=== PATIENT | female | born 1995 | race Caucasian/White ===

== ENCOUNTER 2017-05-08 17:47 | Emergency (ER) | payer SELFPAY ==
[~2017-05-08 17:47] MED LIST: ALBU0.63 NEB; ALBU6.7H IH; AZIT250T PO
--- NOTE | 2017-05-08 18:15 | PHYS DOC ---
Past History Past Medical History: Anxiety, Asthma Past Surgical History: No Surgical History Alcohol Use: None Drug Use: None Adult General Chief Complaint Chief Complaint: FOOT INJURY PAIN HPI HPI Patient is a 21 year old female who presents with left foot & ankle injury. The patient states 5 days ago she tripped & fell twice, unsure exactly how her foot/ankle twisted, but she sat down on top of her left foot. She complains of pain & swelling to the ankle, pain with weightbearing but is able to ambulate. Pain worst when she points her toe, feels stretching in anterior ankle. She denies other injuries, no head trauma or loss of consciousness. This was not caused by syncope. She denies previous ankle/foot injury or surgery. Review of Systems Review of Systems Constitutional: Denies fever or chills HENT: Denies nasal congestion or sore throat Respiratory: Denies cough or shortness of breath Cardiovascular: Denies chest pain Musculoskeletal: Reports foot & ankle pain. Integument: Denies rash Neurologic: Denies headache All other systems were reviewed and found to be within normal limits, except as documented in this note. Allergies Allergies Allergies Coded Allergies Type Severity Reaction Last Updated Verified Penicillins Allergy Intermediate [facility] 06/07/14 No loratadine Allergy Intermediate [facility] 06/07/14 No oseltamivir Allergy Intermediate 06/07/14 No sulfamethoxazole Allergy Intermediate [facility] 06/07/14 No trimethoprim Allergy Intermediate [facility] 06/07/14 No Physical Exam Physical Exam Constitutional: obese, no acute distress, non-toxic appearance. HENT: Normocephalic, atraumatic, bilateral external ears normal, oropharynx moist, nose normal. Eyes: conjunctiva normal, no discharge. Cardiovascular: no edema. Lungs & Thorax: no respiratory distress. Abdomen: nondistended. Skin: Warm, dry, no erythema, no rash. Extremities: left foot & ankle with ecchymosis over lateral malleolus & distal 2 -4 metatarsals, minimal swelling noted. no medial/lateral malleolus tenderness , tenderness over the area of ecchymosis over distal 2-4 metatarsals without deformity, no proximal tib/fib tenderness, intact dorsiflexion & plantarflexion , plantarflexion elicits mild tenderness in lateral ankle. dp/pt 2+, sensation intact to foot. Neurologic: Alert and oriented X 3 EKG EKG [] Radiology/Procedures Radiology/Procedures XR L ankle, 3 views: interpreted by me: no fracture or dislocation. XR L foot, 3 views: interpreted by me: no fracture or dislocation.[] Course & Med Decision Making Course & Med Decision Making Pertinent Labs and Imaging studies reviewed. (See chart for details) Patient presents with foot & ankle injury. X-ray shows no acute bony injury. Recommend supportive care with rest, ice, elevation, [place] wrap bandage. Follow up as needed if not improving in 1 week, either with primary care or ortho. Come back for neurovascular compromise or otherwise worsening condition. Discharged home in stable condition. [] Dragon Disclaimer Dragon Disclaimer This electronic medical record was generated, in whole or in part, using a voice recognition dictation system. Departure Departure: Impression: Primary Impression: Ankle sprain Disposition: HOME, SELF-CARE Referrals: ALTAF ANDREA APRN (PCP) ORTHO Patient Instructions: Ankle Sprain, [id number] Additional Instructions: You were seen in the emergency department today for foot & ankle injury. The x- ray did not show fracture. Please rest, ice, elevate, take ibuprofen, wear [place] wrap for comfort. If not improving in 1 week, follow up with primary care or in the orthopedic clinic. Problem Qualifiers Primary Impression: Ankle sprain Encounter type: initial encounter Involved ligament of ankle: unspecified ligament Laterality: left Qualified Codes: S93.402A - Sprain of unspecified ligament of left ankle, initial encounter ANASTACIO RUIZ MD May 08, 2017 18:15
[2017-05-08 18:40] VITALS: BP 115/64
--- NOTE | 2017-05-09 07:38 | RAD ---
Three-view study of the left foot History: 3 falls over the last week. Bruising along the entire anterior aspect of the foot and ankle. Findings: No acute fracture or dislocation or osteolytic process is evident. IMPRESSION: No acute fracture.
--- NOTE | 2017-05-09 07:40 | RAD ---
Three-view study of the left ankle Clinical indications: 3 falls left week. Bruising along the entire anterior aspect of the foot and ankle. Findings: No acute fracture or dislocation or osteolytic process is evident. Mortise ankle joint is intact. IMPRESSION: No acute fracture.
== END 2017-05-08 18:40 | disposition home or self-care (01) ==
LOC: ER 17:47
DX: S93.402A Sprain of unspecified ligament of left ankle, initial encounter (principal); J45.909 Unspecified asthma, uncomplicated; F41.9 Anxiety disorder, unspecified; Z88.1 Allergy status to other antibiotic agents; Z88.0 Allergy status to penicillin; Z88.8 Allergy status to other drugs, medicaments and biological substances; W01.0XXA Fall on same level from slipping, tripping and stumbling without subsequent striking against object, initial encounter; Y93.89 Activity, other specified; Y99.8 Other external cause status; Y92.89 Other specified places as the place of occurrence of the external cause
CPT/HCPCS: 73610; 73630; 99284

== ENCOUNTER 2017-09-10 20:49 | Emergency (ER) | payer SELFPAY ==
[~2017-09-10] VITALS: Ht 160 cm; Wt 101.5 kg
[2017-09-10] MEDS ORDERED: IV NORMAL SALINE 1,000ML 1,000 ML IV SCH (21:30)
--- NOTE | 2017-09-10 21:43 | EKG ---
[address] [address] Test Date: 2017-09-10 Test Time: 21:36:37 Pat Name: MAU SIERRA Department: Room: Gender: F Manager Salt: RACHEL : 1995 Requested By: KAYLA GÓMEZ Order Number: [id number] Reading MD: Measurements Intervals [place] Rate: 116 P: 24 DC: 150 QRS: 51 QRSD: 64 T: 49 QT: 308 QTc: 434 Interpretive Statements SINUS TACHYCARDIA NO SPECIFIC ECG ABNORMALITIES RI6.01 No previous ECG available for comparison
[2017-09-10] MEDS ORDERED: LORazepam 2 MG/ML VIAL IV ONE ×3 (21:45→23:00)
[2017-09-10] MEDS ORDERED: methylPREDNISolone SOD SUCC PF 125 MG/2 ML VIAL. IV ONE (21:45)
[2017-09-10 22:02] LABS: BASO % 0 % (0-3); EOS % 0 % (0-3); HEMATOCRIT 39.4 % (36.0-47.0); HEMOGLOBIN 13.5 g/dL (12.0-15.5); LYMPH # 2.1 x10^3/uL (1.0-4.8); LYMPH % 32 % (24-48); MEAN CORPUSCULAR HEMOGLOBIN 31 pg (25-35); MEAN CORPUSCULAR HGB CONC 34 g/dL (31-37); MEAN CORPUSCULAR VOLUME 90 fL (79-100); MONO # 0.5 x10^3/uL (0.0-1.1); MONO % 7 % (0-9); NEUT # 3.9 x10^3uL (1.8-7.7); NEUT % 60 % (31-73); PLATELET COUNT 204 x10^3/uL (140-400); RED BLOOD COUNT 4.39 x10^6/uL (3.50-5.40); RED CELL DISTRIBUTION WIDTH 12.5 % (11.5-14.5); WHITE BLOOD COUNT 6.4 x10^3/uL (4.0-11.0)
[2017-09-10 22:12] LABS: CALCIUM 8.6 mg/dL (8.5-10.1); GFR 68.7; POTASSIUM 3.2 mmol/L (3.5-5.1)
[2017-09-10 22:15] LABS: BARBITURATES NEG (NEG); BENZODIAZEPINES NEG (NEG); CANNABINOIDS NEG (NEG); COCAINE NEG (NEG); METHADONE NEG (NEG); OPIATES NEG (NEG); PHENCYCLIDINE NEG (NEG)
[2017-09-10 22:18] LABS: AMPHETAMINE/METHAMPHETAMINE NEG (NEG)
[2017-09-10] MEDS ORDERED: BENZONATATE 100 MG CAPSULE. PO ONE (22:45)
[2017-09-10] MEDS ORDERED: IOHEXOL 300 MG/ML 75 ML VIAL. IV ONE (23:00)
[2017-09-10] MEDS ORDERED: CONTRAST GIVEN MC PRN (23:15)
--- NOTE | 2017-09-10 23:41 | RAD ---
CTA Chest with contrast: Clinical History: Omni 300, 75ml IV. Shortness of air, tachycardia. Hx asthma. No prior exams for comparison Shortness of breath. Axial helical images of the chest were obtained after the administration of 75 cc of IV Omni 300 and timed appropriately for a pulmonary arterial study. Conventional axial reconstruction was performed in addition to coronal, sagittal and bilateral oblique MIP (maximum intensity projection). This study was ordered to detect possible pulmonary embolism. There are no filling defects to suggest pulmonary embolism. The lungs and pleural margins are clear. There is no mediastinal or hilar lymphadenopathy. The thoracic aorta appears normal. Impression: 1. No evidence of pulmonary embolism. 2. No significant findings. PQRS Compliance Statement: One or more of the following individualized dose reduction techniques were utilized for this examination: 1. Automated exposure control 2. Adjustment of the mA and/or kV according to patient size 3. Use of iterative reconstruction technique Electronically signed by: Ramón Cleveland III, MD (09/10/2017 11:37 PM) [facility]
[2017-09-11 00:27] VITALS: BP 113/78
[2017-09-11] MEDS ORDERED: ALPR0.5T PO (00:38)
[2017-09-11] MEDS ORDERED: PRED20TA PO (00:38)
[2017-09-11] MEDS ORDERED: BENZ100C PO (00:38)
--- NOTE | 2017-09-11 00:38 | PHYS DOC ---
Past History Past Medical History: Anxiety, Asthma Past Surgical History: No Surgical History Alcohol Use: Occasionally Drug Use: Other Adult General Chief Complaint Chief Complaint: MULTIPLE COMPLAINTS HPI HPI 21-year-old female with a history of anxiety and asthma now presents the emergency department complaining of dry cough and wheezing over the last day. Patient states she's been very anxious. Because of her asthma symptoms she used more than 20 puffs of her inhaler today. Patient is not wheezing on arrival but she is clearly very anxious. No productive cough. No fevers chills sweats or shaking chills. Patient does not take any anxiety medications nor she currently on steroids for her asthma. Patient has not been treated for this illness as of yet. Tachycardic on arrival. Denies chest pain and specifically denies pleuritic pain Review of Systems Review of Systems Constitutional: Denies fever or chills [] Eyes: Denies change in visual acuity, redness, or eye pain [] HENT: Denies nasal congestion or sore throat [] Respiratory: Denies cough or shortness of breath [] Cardiovascular: No additional information not addressed in HPI [] GI: Denies abdominal pain, nausea, vomiting, bloody stools or diarrhea [] : Denies dysuria or hematuria [] Musculoskeletal: Denies back pain or joint pain [] Integument: Denies rash or skin lesions [] Neurologic: Denies headache, focal weakness or sensory changes [] Endocrine: Denies polyuria or polydipsia [] All other systems were reviewed and found to be within normal limits, except as documented in this note. Current Medications Current Medications Current Medications Medications (Trade) Dose Ordered Sig/Patricia Start Time Stop Time Status Last Admin Dose Admin Benzonatate (Tessalon Perle) 100 mg 1X ONCE 09/10/17 22:45 09/10/17 22:46 DC 09/10/17 22:49 100 MG Info (Do NOT chart on this entry -- for MONITORING) 1 each PRN DAILY PRN 09/10/17 23:15 09/12/17 23:14 Iohexol (Omnipaque 300 Mg/ml) 75 ml 1X ONCE 09/10/17 23:00 09/10/17 23:01 DC 09/10/17 23:09 75 ML Lorazepam (Ativan) 0.5 mg 1X ONCE 09/10/17 23:00 09/10/17 23:01 DC Methylprednisolone Sodium Succinate (SOLU-Medrol 125MG VIAL) 125 mg 1X ONCE 09/10/17 21:45 09/10/17 21:46 DC 09/10/17 21:47 125 MG Sodium Chloride 1,000 ml @ 1,000 mls/hr Q1H 09/10/17 21:30 09/10/17 21:48 1,000 MLS/HR Allergies Allergies Allergies Coded Allergies Type Severity Reaction Last Updated Verified Penicillins Allergy Intermediate [facility] 06/07/14 No loratadine Allergy Intermediate [facility] 06/07/14 No oseltamivir Allergy Intermediate 06/07/14 No sulfamethoxazole Allergy Intermediate [facility] 06/07/14 No trimethoprim Allergy Intermediate [facility] 06/07/14 No Physical Exam Physical Exam Constitutional: Well developed, well nourished, very anxious patient tachypnea can tachycardic. HENT: Normocephalic, atraumatic, bilateral external ears normal, oropharynx moist, no oral exudates, nose normal. [] Eyes: PERRLA, EOMI, conjunctiva normal, no discharge. [] Neck: Normal range of motion, no tenderness, supple, no stridor. [] Cardiovascular:Heart rate regular rhythm, no murmur [] Lungs & Thorax: Bilateral breath sounds clear to auscultation no wheezes rales rubs or rhonchi[] Abdomen: Bowel sounds normal, soft, no tenderness, no masses, no pulsatile masses. [] Skin: Warm, dry, no erythema, no rash. [] Back: No tenderness, no CVA tenderness. [] Extremities: No tenderness, no cyanosis, no clubbing, ROM intact, no edema. [] Neurologic: Alert and oriented X 3, normal motor function, normal sensory function, no focal deficits noted. [] Psychologic: Affect is very anxious, judgement normal, Current Patient Data Vital Signs Vital Signs Date Time Temp Pulse Resp B/P (MAP) Pulse Ox O2 Delivery O2 Flow Rate FiO2 09/10/17 20:49 98.4 122 24 97 Room Air Lab Results Laboratory Tests Test 09/10/17 21:35 09/10/17 21:45 Urine Opiates Screen Neg (NEG) Urine Methadone Screen Neg (NEG) Urine Barbiturates Neg (NEG) Urine Phencyclidine Screen Neg (NEG) Urine Amphetamine/Methamphetamine Neg (NEG) Urine Benzodiazepines Screen Neg (NEG) Urine Cocaine Screen Neg (NEG) Urine Cannabinoids Screen Neg (NEG) Urine Ethyl Alcohol Neg (NEG) White Blood Count 6.4 x10^3/uL (4.0-11.0) Red Blood Count 4.39 x10^6/uL (3.50-5.40) Hemoglobin 13.5 g/dL (12.0-15.5) Hematocrit 39.4 % (36.0-47.0) Mean Corpuscular Volume 90 fL (79-100) Mean Corpuscular Hemoglobin 31 pg (25-35) Mean Corpuscular Hemoglobin Concent 34 g/dL (31-37) Red Cell Distribution Width 12.5 % (11.5-14.5) Platelet Count 204 x10^3/uL (140-400) Neutrophils (%) (Auto) 60 % (31-73) Lymphocytes (%) (Auto) 32 % (24-48) Monocytes (%) (Auto) 7 % (0-9) Eosinophils (%) (Auto) 0 % (0-3) Basophils (%) (Auto) 0 % (0-3) Neutrophils # (Auto) 3.9 x10^3uL (1.8-7.7) Lymphocytes # (Auto) 2.1 x10^3/uL (1.0-4.8) Monocytes # (Auto) 0.5 x10^3/uL (0.0-1.1) Eosinophils # (Auto) 0.0 x10^3/uL (0.0-0.7) Basophils # (Auto) 0.0 x10^3/uL (0.0-0.2) Sodium Level 143 mmol/L (136-145) Potassium Level 3.2 mmol/L (3.5-5.1) L Chloride Level 106 mmol/L (98-107) Carbon Dioxide Level 25 mmol/L (21-32) Anion Gap 12 (6-14) Blood Urea Nitrogen 18 mg/dL (7-20) Creatinine 1.0 mg/dL (0.6-1.0) Estimated GFR (Cockcroft-Gault) 68.7 Glucose Level 111 mg/dL (70-99) H Calcium Level 8.6 mg/dL (8.5-10.1) Troponin I Quantitative < 0.017 ng/mL (0-0.055) EKG EKG [] Radiology/Procedures Radiology/Procedures Chest x-ray normal study no acute disease interpreted by me[] Course & Med Decision Making Course & Med Decision Making Pertinent Labs and Imaging studies reviewed. (See chart for details) Signs and symptoms consistent with severe anxiety. Patient is significantly tachycardic on arrival which appears to be secondary to her excessive use of bronchodilator therapy today. She is not wheezing on arrival though she feels she is still having symptoms of asthma. It appears that clinically the patient' s anxiety is a very significant contributory factor to her perception of shortness of breath. X-rays unremarkable. Given her tachycardia on arrival to rule out the possibility of pulmonary embolism and given the patient's tachycardia and perception of dyspnea she does not appear to be at the lowest risk category so CTA of the chest was done. Result was unremarkable. Patient is dramatically improved after 1 mg of Ativan total. Heart rate 107 after hydration patient is calm and comfortable appearing. Cough resolved after Tessalon administration. No further workup or treatment is indicated at this time. Patient will be prescribed prednisone as well as Tessalon for her cough and asthma symptoms and Xanax for use as needed for her anxiety. She agrees that outpatient follow-up with primary care physician and strict return precautions given Dragon Disclaimer Dragon Disclaimer This electronic medical record was generated, in whole or in part, using a voice recognition dictation system. Departure Departure: Impression: Primary Impression: Upper respiratory infection Additional Impressions: Asthma exacerbation Anxiety Disposition: 01 HOME, SELF-CARE Condition: IMPROVED Referrals: ALTAF ANDREA APRN (PCP) Patient Instructions: Anxiety and Panic Attacks, Asthma Attacks, Prevention, Upper Respiratory Infection, Adult Additional Instructions: It appears that you're experiencing an upper respiratory infection. This is typically caused by a viral illness which causes irritation of your airways a persistent dry cough. Take Tessalon as needed to help control cough. Finish prednisone as prescribed once a day this is a steroid with a strong anti- inflammatory and will help with minimizing the inflammation causing your cough as well as with any asthma symptoms. It is very clear that your anxiety was significantly contribute into your symptoms today. You have improved significantly with a benzodiazepine medication in the emergency department and you've been given a prescription for several Xanax another benzodiazepine. Follow-up with your doctor tomorrow for reevaluation and to discuss whether he might benefit from a prescription for Xanax for use as needed for anxiety. Return immediately for new severe worsening symptoms Scripts Alprazolam (XANAX) 0.5 Mg Tablet 1 TAB PO twice a day, #4 TAB Prov: KAYLA GÓMEZ MD 09/11/17 Prednisone (PREDNISONE) 20 Mg Tablet 60 MG PO DAILY for 6 Days, #18 TAB Prov: KAYLA GÓMEZ MD 09/11/17 Benzonatate (TESSALON PERLE) 100 Mg Capsule 1 CAP PO TID for COUGH, #30 CAP Prov: KAYLA GÓMEZ MD 09/11/17 Problem Qualifiers KAYLA GÓMEZ MD September 11, 2017 00:38
--- NOTE | 2017-09-11 08:02 | RAD ---
Single view of the Chest 09/10/2017 11:18 PM Indication: Difficulty breathing, wheezing, shortness of air. Hx of asthma Comparison: None Findings: There is no focal consolidation or infiltrate identified. There is no effusion or pneumothorax. The cardiomediastinal silhouette and pulmonary vasculature are within normal limits. No osseous abnormality is identified. Impression: No evidence of acute cardiopulmonary process.
== END 2017-09-11 00:45 | disposition home or self-care (01) ==
LOC: ER 20:49
DX: J06.9 Acute upper respiratory infection, unspecified (principal); J45.901 Unspecified asthma with (acute) exacerbation; F41.9 Anxiety disorder, unspecified; Z88.0 Allergy status to penicillin; Z88.1 Allergy status to other antibiotic agents; Z88.8 Allergy status to other drugs, medicaments and biological substances
CPT/HCPCS: 36415; 71045; 71275; 80048; 80307; 84484; 85025; 93005; 96374; 96375; 96376; 99285; J2060; J2930; Q9967; G0479; J7030

== ENCOUNTER 2017-10-30 23:28 | Emergency (ER) | payer SELFPAY ==
[~2017-10-30] VITALS: Ht 160 cm; Wt 101.5 kg
[~2017-10-30 23:28] MED LIST changes: +ALPR0.5T PO; +BENZ100C PO; +PRED20TA PO
--- NOTE | 2017-10-30 23:38 | ED.ADGEN ---
Past History Past Medical History: Anxiety, Asthma, Depression Past Surgical History: No Surgical History Alcohol Use: Occasionally Drug Use: Other Adult General Chief Complaint Chief Complaint ".. I had been drinking heavy earlier.. I was kezia depressed over seeing my ex. .. out with someone else.. and maybe said some stupid stuff on the internet.. and I had cut my wrist several times.;. but not to kill myself.. I have self cut before.. when I got really up set.. I have thought about suicide in the past.. but not really tonight... it just my friends got all up set and the call the polices. ..and the ambulance.. so I ended up here..." HPI HPI Patient is a 21 year old female who presents with above hx and complaints of depression but denies serious suicide ideation. Pt. reports prior episodes as teenager where she self cut and couple episodes of more serious suicidal ideation. Pt. states today she over reacted when she seen her Ex with a new person. Pt. denies illicit drug use. Pt. denies any history of immunosuppression. Patient denies any history of travel. Patient denies any ingestion of drugs. Does admit to heavy alcohol use earlier. Review of Systems Review of Systems Constitutional: Denies fever or chills [] Eyes: Denies change in visual acuity, redness, or eye pain [] HENT: Denies nasal congestion or sore throat [] Respiratory: Denies cough or shortness of breath [] Cardiovascular: No additional information not addressed in HPI [] GI: Denies abdominal pain, nausea, vomiting, bloody stools or diarrhea [] : Denies dysuria or hematuria [] Musculoskeletal: Denies back pain or joint pain [] Integument: Denies rash or skin lesions []Cuts to Lt wrist- superficial Neurologic: Denies headache, focal weakness or sensory changes [] Endocrine: Denies polyuria or polydipsia [] All other systems were reviewed and found to be within normal limits, except as documented in this note. Family History Family History Noncontributory Current Medications Current Medications Current Medications Medications (Trade) Dose Ordered Sig/Patricia Start Time Stop Time Status Last Admin Dose Admin Folic Acid (FOLIC ACID SYRINGE for ER) 5 mg STK-MED ONCE 10/30/17 23:59 10/31/17 00:00 DC Multivitamins/ Minerals (Infuvite Adult) 10 ml STK-MED ONCE 10/31/17 00:03 10/31/17 00:05 DC Multivitamins/ Minerals 10 ml/ Folic Acid 1 mg/ Thiamine HCl 100 mg/Sodium Chloride 1,011.2 ml @ 1,000 mls/ hr Q1H 10/30/17 23:45 10/31/17 01:07 DC 10/30/17 23:45 1,000 MLS/HR Phytonadione (Vitamin K) 10 mg STK-MED ONCE 10/31/17 00:00 10/31/17 00:02 DC Tetanus/ Diphtheria Toxoids Adsorbed (Tenivac Vial) 0.5 ml ONCE ONCE 10/31/17 00:15 10/31/17 00:16 DC 10/31/17 01:07 0.5 ML Thiamine HCl 200 mg STK-MED ONCE 10/30/17 23:58 10/31/17 00:00 DC See nursing for home meds Allergies Allergies Allergies Coded Allergies Type Severity Reaction Last Updated Verified Penicillins Allergy Intermediate [facility] 06/07/14 No loratadine Allergy Intermediate [facility] 06/07/14 No oseltamivir Allergy Intermediate 06/07/14 No sulfamethoxazole Allergy Intermediate [facility] 06/07/14 No trimethoprim Allergy Intermediate [facility] 06/07/14 No Physical Exam Physical Exam Constitutional: , no acute distress, non-toxic appearance. [] HENT: Normocephalic, atraumatic, bilateral external ears normal, oropharynx moist, no oral exudates, nose normal. []Upper lip scar. Eyes: PERRLA, EOMI, conjunctiva normal, no discharge. [] Neck: Normal range of motion, no tenderness, supple, no stridor. [] Cardiovascular:Tachycardia Heart rate regular rhythm, no murmur [] Lungs & Thorax: Bilateral breath sounds equal at apexes on auscultation [] Abdomen: Bowel sounds normal, soft, no tenderness, no masses, no pulsatile masses. [] Obese. Skin: Warm, dry, no erythema, no rash. [] Back: No tenderness, no CVA tenderness. [] Extremities: No tenderness, no cyanosis, no clubbing, ROM intact, no edema. [] Superficial cuts to Lt wrist. Neurologic: Alert and oriented X 3, normal motor function, normal sensory function, no focal deficits noted. [] Psychologic: Affect flat, judgement normal, mood depressed. Current Patient Data Vital Signs Vital Signs Date Time Temp Pulse Resp B/P (MAP) Pulse Ox O2 Delivery O2 Flow Rate FiO2 10/31/17 05:30 97.5 78 18 125/72 (89) 97 Room Air Lab Results Laboratory Tests Test 10/31/17 00:06 10/31/17 00:33 10/31/17 01:11 POC Urine HCG, Qualitative hcg negative (Negative) Urine Collection Type Unknown Urine Color Yellow Urine Clarity Clear Urine pH 7.0 Urine Specific [place] 1.020 Urine Protein Neg (NEG-TRACE) Urine Glucose (UA) Neg mg/dL (NEG) Urine Ketones (Stick) Neg mg/dL (NEG) Urine Blood Neg (NEG) Urine Nitrite Neg (NEG) Urine Bilirubin Neg (NEG) Urine Urobilinogen Dipstick 1 mg/dL (0.2 mg/dL) Urine Leukocyte Esterase Neg (NEG) Urine RBC 0 /HPF (0-2) Urine WBC Occ /HPF (0-4) Urine Squamous Epithelial Cells None /LPF Urine Bacteria 0 /HPF (0-FEW) Urine Opiates Screen Neg (NEG) Urine Methadone Screen Neg (NEG) Urine Barbiturates Neg (NEG) Urine Phencyclidine Screen Neg (NEG) Urine Amphetamine/Methamphetamine Neg (NEG) Urine Benzodiazepines Screen Neg (NEG) Urine Cocaine Screen Neg (NEG) Urine Cannabinoids Screen Neg (NEG) Urine Ethyl Alcohol Pos (NEG) White Blood Count 6.3 x10^3/uL (4.0-11.0) Red Blood Count 4.08 x10^6/uL (3.50-5.40) Hemoglobin 12.4 g/dL (12.0-15.5) Hematocrit 36.1 % (36.0-47.0) Mean Corpuscular Volume 88 fL (79-100) Mean Corpuscular Hemoglobin 30 pg (25-35) Mean Corpuscular Hemoglobin Concent 34 g/dL (31-37) Red Cell Distribution Width 12.7 % (11.5-14.5) Platelet Count 185 x10^3/uL (140-400) Neutrophils (%) (Auto) 42 % (31-73) Lymphocytes (%) (Auto) 52 % (24-48) H Monocytes (%) (Auto) 6 % (0-9) Eosinophils (%) (Auto) 0 % (0-3) Basophils (%) (Auto) 0 % (0-3) Neutrophils # (Auto) 2.7 x10^3uL (1.8-7.7) Lymphocytes # (Auto) 3.2 x10^3/uL (1.0-4.8) Monocytes # (Auto) 0.4 x10^3/uL (0.0-1.1) Eosinophils # (Auto) 0.0 x10^3/uL (0.0-0.7) Basophils # (Auto) 0.0 x10^3/uL (0.0-0.2) Prothrombin Time 9.9 SEC (9.4-11.4) Prothrombin Time INR 1.0 (0.9-1.1) PTT 25 SEC (23-33) Sodium Level 144 mmol/L (136-145) Potassium Level 3.9 mmol/L (3.5-5.1) Chloride Level 109 mmol/L (98-107) H Carbon Dioxide Level 24 mmol/L (21-32) Anion Gap 11 (6-14) Blood Urea Nitrogen 10 mg/dL (7-20) Creatinine 0.8 mg/dL (0.6-1.0) Estimated GFR (Cockcroft-Gault) 88.9 Glucose Level 97 mg/dL (70-99) Calcium Level 8.1 mg/dL (8.5-10.1) L Magnesium Level 1.8 mg/dL (1.8-2.4) Total Bilirubin 0.2 mg/dL (0.2-1.0) Direct Bilirubin 0.1 mg/dL (0.0-0.2) Aspartate Amino Transferase (AST) 16 U/L (15-37) Alanine Aminotransferase (ALT) 25 U/L (14-59) Alkaline Phosphatase 80 U/L (46-116) Total Protein 6.5 g/dL (6.4-8.2) Albumin 3.3 g/dL (3.4-5.0) L Salicylates Level 1.0 mg/dL (2.8-20.0) L Salicylate Last Dose Date Unknown Salicylate Last Dose Time Unknown Acetaminophen Level < 2.0 mcg/mL (10-30) L Acetaminophen Last Dose Date Unknown Acetaminophen Last Dose Time Unknown Ethyl Alcohol Level < 10 mg/dL (0-10) EKG EKG My interpretation EKG shows a sinus rhythm at 91 bpm. With no acute morphology.[ ] Radiology/Procedures Radiology/Procedures My interpretation of chest x-ray shows no acute cardiopulmonary findings[] Course & Med Decision Making Course & Med Decision Making {Pertinent Labs and Imaging studies reviewed. (See chart for details). Lt. wrist abrasions cleaned with Betadine. Tetanus up dated. Awaiting . psych eval. 0200 [facility]wait[facility] Crisis center psych. Eval. 0230 [facility]waiting Crisis center eval. - Pt. has been sleeping- 0330 Hr.s Awaiting Crisis eval 4:30 Pt. asleep. O530- Advised pt to contract and follow up out pt. Pt. to apply polysporin to wrist 4 x day until healed. See SI contract. See Yulia Ram - [facility] [place] Pt. to follow up with counseling center and primary. Pt. promises to return if she has an exacerbation of SI or depression. [] Final Impression Final Impression 1. Suicidal Ideation 2. Depression.[] 3. Self cutting- several very shallow scratches to Lt wrist. 4. Elevated Lymphs Dragon Disclaimer Dragon Disclaimer This electronic medical record was generated, in whole or in part, using a voice recognition dictation system. ROSA FERNANDEZ MD Oct 30, 2017 23:38
[2017-10-30] MEDS ORDERED: MVI, ADULT NO.4 WITH VIT K 10 ML, FOLIC ACID 1 MG, THIAMINE 100 MG in IV NORMAL SALINE ... IV SCH ×4 (23:45)
[2017-10-30] MEDS ORDERED: THIAMINE 200 MG/2 ML VIAL. IV ONE (23:58)
[2017-10-30] MEDS ORDERED: FOLIC ACID 5 MG/ML SYRINGE for ER IV ONE (23:59)
[2017-10-31] MEDS ORDERED: PHYTONADIONE 10 MG/ML AMPUL. ONE
[2017-10-31] MEDS ORDERED: MVI, ADULT NO.4 WITH VIT K 10 ML VIAL IV ONE (00:03)
[2017-10-31] MEDS ORDERED: TETANUS AND DIPHTHERIA TOX/PF 0.5 ML VIAL. VAX IM ONE (00:15)
--- NOTE | 2017-10-31 00:21 | RAD ---
AP portable chest radiograph 10/30/2017 Clinical History: Psychiatric evaluation. An AP erect portable digital radiograph of the chest was obtained. Comparison study is dated 09/10/2017. The cardiac and mediastinal silhouettes are within normal limits in size and configuration. No acute pulmonary infiltrate is seen. No pleural effusion or pneumothorax is noted. The osseous structures are grossly intact. IMPRESSION: No radiographic evidence of active cardiopulmonary disease. Electronically signed by: Neo Calzada MD (10/31/2017 12:17 AM) [facility]
[2017-10-31 01:13] LABS: BARBITURATES NEG (NEG); BENZODIAZEPINES NEG (NEG); CANNABINOIDS NEG (NEG); COCAINE NEG (NEG); METHADONE NEG (NEG); OPIATES NEG (NEG); PHENCYCLIDINE NEG (NEG)
[2017-10-31 01:15] LABS: AMPHETAMINE/METHAMPHETAMINE NEG (NEG)
[2017-10-31 01:18] LABS: BILIRUBIN,URINE NEG (NEG); CLARITY,URINE CLEAR; COLOR,URINE YELLOW; GLUCOSE,URINE NEG (NEG)
[2017-10-31 01:19] LABS: NITRITE,URINE NEG (NEG); RBC,URINE 0 /HPF (0-2); UROBILINOGEN,URINE 1 mg/dL (0.2 mg/dL); WBC,URINE OCC /HPF (0-4)
[2017-10-31 01:20] LABS: BACTERIA,URINE 0 /HPF (0-FEW)
[2017-10-31 01:28] LABS: BASO % 0 % (0-3); EOS % 0 % (0-3); HEMATOCRIT 36.1 % (36.0-47.0); HEMOGLOBIN 12.4 g/dL (12.0-15.5); LYMPH # 3.2 x10^3/uL (1.0-4.8); LYMPH % 52 % (24-48); MEAN CORPUSCULAR HEMOGLOBIN 30 pg (25-35); MEAN CORPUSCULAR HGB CONC 34 g/dL (31-37); MEAN CORPUSCULAR VOLUME 88 fL (79-100); MONO # 0.4 x10^3/uL (0.0-1.1); MONO % 6 % (0-9); NEUT # 2.7 x10^3uL (1.8-7.7); NEUT % 42 % (31-73); PLATELET COUNT 185 x10^3/uL (140-400); RED BLOOD COUNT 4.08 x10^6/uL (3.50-5.40); RED CELL DISTRIBUTION WIDTH 12.7 % (11.5-14.5); WHITE BLOOD COUNT 6.3 x10^3/uL (4.0-11.0)
[2017-10-31 01:41] LABS: ALBUMIN 3.3 g/dL (3.4-5.0); CALCIUM 8.1 mg/dL (8.5-10.1); CREATININE 0.8 mg/dL (0.6-1.0); DIRECT BILIRUBIN 0.1 mg/dL (0.0-0.2); GFR 88.9; MAGNESIUM 1.8 mg/dL (1.8-2.4); POTASSIUM 3.9 mmol/L (3.5-5.1); TOTAL BILIRUBIN 0.2 mg/dL (0.2-1.0); TOTAL PROTEIN 6.5 g/dL (6.4-8.2)
[2017-10-31 01:42] LABS: ETHANOL < 10 mg/dL (0-10)
[2017-10-31 01:43] LABS: ACETAMIN < 2.0 mcg/mL (10-30)
--- NOTE | 2017-10-31 02:09 | EKG ---
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
[2017-10-31 05:30] VITALS: BP 125/72
== END 2017-10-31 06:22 | disposition home or self-care (01) ==
LOC: ER 23:28
DX: R45.851 Suicidal ideations (principal); F32.9 Major depressive disorder, single episode, unspecified; D72.820 Lymphocytosis (symptomatic); S60.812A Abrasion of left wrist, initial encounter; Z88.0 Allergy status to penicillin; Z91.5 Personal history of self-harm; Z88.1 Allergy status to other antibiotic agents; Z88.8 Allergy status to other drugs, medicaments and biological substances; X78.9XXA Intentional self-harm by unspecified sharp object, initial encounter; Y93.89 Activity, other specified; Y99.8 Other external cause status; Y92.89 Other specified places as the place of occurrence of the external cause
CPT/HCPCS: 36415; 71045; 80048; 80076; 80307; 81001; 81025; 83735; 84443; 85025; 85610; 85730; 90471; 90714; 93005; 96365; 96366; 99285; G0480; G6039; 82003; G0479; J7030

== ENCOUNTER 2018-03-17 11:36 | Emergency (ER) | payer SELFPAY ==
[~2018-03-17] VITALS: Ht 160 cm; Wt 101.5 kg
[2018-03-17 11:51] VITALS: BP 135/79
--- NOTE | 2018-03-17 12:09 | RAD ---
Three-view right ankle dated 03/17/2018. Comparison made to 05/08/2017. Clinical data indication: Pain after injury. FINDINGS: 3 views right ankle show normal bony alignment. No displaced fracture. No acute osseous or articular abnormality. Talar dome is intact. Well-corticated fragment. The tip of the distal fibula, likely accessory ossification center. IMPRESSION: No acute radiographic abnormality. Electronically signed by: Jeovany Casey MD (03/17/2018 12:06 PM) [facility]
[2018-03-17] MEDS ORDERED: NAPR-683 PO (12:27)
--- NOTE | 2018-03-17 12:27 | PHYS DOC ---
Past History Past Medical History: No Pertinent History Past Surgical History: No Surgical History Smoking: Non-smoker Alcohol Use: Occasionally Drug Use: None Adult General Chief Complaint Chief Complaint: ANKLE PROBLEM HPI HPI Patient is a 22 year old female who presents with complaining of right ankle injury and pain after an accidental fall from 3 stairs at her home about 30 minutes prior to arrival to ER without head injury or loss of consciousness. Patient complaining of right ankle pain with bearing weight on standing without focal neuro deficit. Review of Systems Review of Systems Constitutional: Denies fever or chills [] Eyes: Denies change in visual acuity, redness, or eye pain [] HENT: Denies nasal congestion or sore throat [] Respiratory: Denies cough or shortness of breath [] Cardiovascular: No additional information not addressed in HPI [] GI: Denies abdominal pain, nausea, vomiting, bloody stools or diarrhea [] : Denies dysuria or hematuria [] Musculoskeletal: Denies back pain, reports joint pain [] Integument: Denies rash or skin lesions [] Neurologic: Denies headache, focal weakness or sensory changes [] Endocrine: Denies polyuria or polydipsia [] All other systems were reviewed and found to be within normal limits, except as documented in this note. Allergies Allergies Allergies Coded Allergies Type Severity Reaction Last Updated Verified Penicillins Allergy Intermediate [facility] 06/07/14 No loratadine Allergy Intermediate [facility] 06/07/14 No oseltamivir Allergy Intermediate 06/07/14 No sulfamethoxazole Allergy Intermediate [facility] 06/07/14 No trimethoprim Allergy Intermediate [facility] 06/07/14 No Physical Exam Physical Exam Constitutional: Well developed, well nourished, mild distress, non-toxic appearance. [] HENT: Normocephalic, atraumatic. Eyes: PERRLA, EOMI, conjunctiva normal, no discharge. [] Neck: Normal range of motion, no tenderness, supple, no stridor. [] Cardiovascular:Heart rate regular rhythm, no murmur [] Lungs & Thorax: Bilateral breath sounds clear to auscultation [] Skin: Warm, dry, no erythema, no rash. [] Back: No tenderness, no CVA tenderness. [] Extremities: Right lower extremity without deformity or edema, mild tenderness in lateral malleolus without change of range of motion, no neurovascular deficit. Neurologic: Alert and oriented X 3, normal motor function, normal sensory function, no focal deficits noted. [] Psychologic: Affect normal, judgement normal, mood normal. [] Current Patient Data Vital Signs Vital Signs Date Time Temp Pulse Resp B/P (MAP) Pulse Ox O2 Delivery O2 Flow Rate FiO2 03/17/18 11:51 99.0 97 16 97 Room Air EKG EKG [] Radiology/Procedures Radiology/[place] [address] IMAGING REPORT Signed PATIENT: MAU SIERRA ACCOUNT: [id number] : 1995 LOCATION: ER AGE: 22 SEX: F EXAM STATUS: REG ER ORD. PHYSICIAN: LITO WALTERS MD REASON: injury PROCEDURE: ANKLE RIGHT 3V Three-view right ankle dated 03/17/2018. Comparison made to 05/08/2017. Clinical data indication: Pain after injury. FINDINGS: 3 views right ankle show normal bony alignment. No displaced fracture. No acute osseous or articular abnormality. Talar dome is intact. Well-corticated fragment. The tip of the distal fibula, likely accessory ossification center. IMPRESSION: No acute radiographic abnormality. Electronically signed by: Jeovany Casey MD (03/17/2018 12:06 PM) [facility] DICTATED AND SIGNED BY: JEOVANY CASEY MD DATE: 03/17/18 1205 CC: ALTAF ANDREA APRN; LITO WALTERS MD ~ Course & Med Decision Making Course & Med Decision Making Pertinent Imaging studies reviewed. (See chart for details) Evaluation of patient in ER showed 22-year-old female patient accidental fall and injury to right ankle. Patient had unremarkable physical exam and x-ray. Plan to apply Raymond wrap and instruction to apply ice and taking ibuprofen. Dragon Disclaimer Dragon Disclaimer This electronic medical record was generated, in whole or in part, using a voice recognition dictation system. Departure Departure: Disposition: HOME, SELF-CARE (at 1225) Condition: IMPROVED Referrals: ALTAF ANDREA APRN (PCP) Patient Instructions: Ankle Sprain Additional Instructions: Apply ice on right ankle Follow-up with your primary care physician in 3-5 days Return to ER if not getting better Scripts Naproxen (NAPROSYN) 500 Mg Tablet 1 TAB PO BID for pain, #20 TAB Prov: LITO WALTERS MD 03/17/18 LITO WALTERS MD Mar 17, 2018 12:27
== END 2018-03-17 12:36 | disposition home or self-care (01) ==
LOC: ER 11:36
DX: S99.911A Unspecified injury of right ankle, initial encounter (principal); Z88.0 Allergy status to penicillin; Z88.1 Allergy status to other antibiotic agents; Z88.2 Allergy status to sulfonamides; Z88.8 Allergy status to other drugs, medicaments and biological substances; W10.8XXA Fall (on) (from) other stairs and steps, initial encounter; Y93.89 Activity, other specified; Y92.89 Other specified places as the place of occurrence of the external cause; Y99.8 Other external cause status
CPT/HCPCS: 73610; 99284

== ENCOUNTER 2020-11-06 13:20 | Emergency (ER) | payer SELFPAY ==
[~2020-11-06] VITALS: Ht 160 cm; Wt 101.5 kg
[~2020-11-06 13:20] MED LIST changes: +ALBU2.5V8 IH; -ALBU6.7H IH; +NAPR-683 PO
[2020-11-06 13:30] VITALS: BP 124/89
[2020-11-06] MEDS ORDERED: KETOROLAC 15 MG/ML VIAL. IM ONE (14:15)
[2020-11-06] MEDS ORDERED: CYCLOBENZAPRINE 10 MG TABLET. PO ONE (14:15)
[2020-11-06] MEDS ORDERED: CYCL-331 PO (14:40)
--- NOTE | 2020-11-06 14:40 | PHYS DOC ---
Past History Past Medical History: Asthma (ROSALEE WELDON APRN) Past Surgical History: Other Additional Past Surgical Histo: Cleft lip surgery x 2 as a child (ROSALEE WELDON APRN) Smoking: Non-smoker Alcohol Use: Occasionally Drug Use: None (ROSALEE WELDON APRN) General Adult EDM: Chief Complaint: BACK PAIN OR INJURY HPI: HPI: Patient is a 24-year-old female presents with left-sided lower back pain that radiates down her left leg and buttocks. Patient states that yesterday she had sat down and when she got up is when the pain started. Patient reports using heat to her lower back with some relief. Patient denies taking any pain medicat ion. Patient states "this is happened to me 2 times in the past". Denies injury. Patient denies urinary retention or loss of bowel. Patient is able to ambulate on her own. Reports history of asthma. (ROSALEE WELDON APRN) Review of Systems: Review of Systems: Constitutional: Denies fever or chills Eyes: Denies change in visual acuity HENT: Denies nasal congestion or sore throat Respiratory: Denies cough or shortness of breath Cardiovascular: Denies chest pain or edema GI: Denies abdominal pain, nausea, vomiting, bloody stools or diarrhea : Denies dysuria Musculoskeletal: Reports left-sided lower back pain with radiation down left leg and buttock Integument: Denies rash Neurologic: Denies headache, focal weakness or sensory changes Endocrine: Denies polyuria or polydipsia Lymphatic: Denies swollen glands Psychiatric: Denies depression or anxiety (ROSALEE WELDON APRN) Current Medications: Current Meds: Current Medications Medications (Trade) Dose Ordered Sig/Patricia Start Time Stop Time Status Last Admin Dose Admin Cyclobenzaprine HCl (Flexeril) 10 mg 1X ONCE 11/06/20 14:15 11/06/20 14:16 DC 11/06/20 14:19 10 MG Ketorolac Tromethamine (Toradol 15mg Vial) 15 mg 1X ONCE 11/06/20 14:15 11/06/20 14:16 DC 11/06/20 14:19 15 MG (ROSALEE WELDON APRN) Allergies: Allergies: Allergies Coded Allergies Type Severity Reaction Last Updated Verified Penicillins Allergy Intermediate [facility] 06/07/14 No loratadine Allergy Intermediate [facility] 06/07/14 No oseltamivir Allergy Intermediate 06/07/14 No sulfamethoxazole Allergy Intermediate [facility] 06/07/14 No trimethoprim Allergy Intermediate [facility] 06/07/14 No (ROSALEE WELDON APRN) Physical Exam: PE: Constitutional: Well developed, well nourished, no acute distress, non-toxic appearance. [] HENT: Normocephalic, atraumatic, bilateral external ears normal, oropharynx moist, no oral exudates, nose normal. [] Eyes: PERRLA, EOMI, conjunctiva normal, no discharge. [] Neck: Normal range of motion, no tenderness, supple, no stridor. [] Cardiovascular:Heart rate regular rhythm, no murmur [] Lungs & Thorax: Bilateral breath sounds clear to auscultation [] Abdomen: Bowel sounds normal, soft, no tenderness, no masses, no pulsatile masses. [] Skin: Warm, dry, no erythema, no rash. [] Back: Left lower back tenderness, no CVA tenderness. [] Extremities: No tenderness, no cyanosis, no clubbing, ROM intact, no edema. [] Neurologic: Alert and oriented X 3, normal motor function, normal sensory function, no focal deficits noted. [] Psychologic: Affect normal, judgement normal, mood normal. [] (ROSALEE WELDON APRN) Current Patient Data: Vital Signs: Vital Signs Date Time Temp Pulse Resp B/P (MAP) Pulse Ox O2 Delivery O2 Flow Rate FiO2 11/06/20 13:30 98.3 104 18 124/89 (101) 97 Room Air (ROSALEE WELDON APRN) EKG: EKG: [] (ROSALEE WELDON APRN) Radiology/Procedures: Radiology/Procedures: [] (ROSALEE WELDON APRN) Heart Score: C/O Chest Pain: No Risk Factors: Risk Factors: DM, Current or recent (<one month) smoker, HTN, HLP, family history of CAD, obesity. Risk Scores: Score 0 - 3: 2.5% MACE over next 6 weeks - Discharge Home Score 4 - 6: 20.3% MACE over next 6 weeks - Admit for Clinical Observation Score 7 - 10: 72.7% MACE over next 6 weeks - Early Invasive Strategies (ROSALEE WELDON APRN) Course & Med Decision Making: Course & Med Decision Making Pertinent Labs and Imaging studies reviewed. (See chart for details) [] 24-year-old female presents with left-sided lower back pain with radiation down her buttocks and left leg. Patient has a history of sciatica. Patient gi zack Flexeril and also Toradol in the emergency room for pain relief. Patient is discharged home with Flexeril and instructions to take ibuprofen for discomfort. Patient given strict return precautions. Patient is hemodynamically stable and able to ambulate on her own out of the emergency room. Patient is appreciative of care and okay with discharge plan. (ROSALEE WELDON APRN) Course & Med Decision Making I oversaw on the above date of service of this patient. This patient was evaluated, examined, treated, and dispositioned from the emergency department by the mid-level practitioner. Although I was working at the time and available for consultation, no assistance was requested and I did not see or immediately direct the care of this patient. I reviewed note and agree to findings, plan of care, and disposition as stated. Electronically signed, Amy Pineda DO (AMY PINEDA DO) Tova Disclaimer: Tova Disclaimer: This electronic medical record was generated, in whole or in part, using a voice recognition dictation system. (ROSALEE WELDON APRN) Departure Departure: Impression: Primary Impression: Sciatic leg pain Additional Impression: Lower back pain Qualified Codes: M54.42 - Lumbago with sciatica, left side Disposition: HOME / SELF CARE / HOMELESS Condition: STABLE Referrals: ALTAF ANDREA APRN (PCP) Patient Instructions: Sciatica, [id number] Additional Instructions: You were seen in the emergency room for left lower back pain with radiation down her left leg and buttocks. You are being treated for sciatic nerve pain. You were given Flexeril and Toradol in the emergency room. I am sending you home with a prescription for Flexeril. You can also take ibuprofen at home for discomfort. Please return to the emergency room if you have worsening symptoms or concerns. EMERGENCY DEPARTMENT GENERAL DISCHARGE INSTRUCTIONS Thank you for coming to [facility] (ED) today and trusting us with you care. We trust that you had a positivie experience in our Emergency Department. If you wish to speak to the department management, you may call the director at [phone]. YOUR FOLLOW UP INSTRUCTIONS ARE FOLLOWS: 1. Do you have a private Doctor? If you do not have a private doctor, please ask for a resource list of physicians or clinics that may be able to assist you with follow up care. 2. The Emergency Physician has interpreted your x-rays. The X-Ray specialist will also review them. If there is a change in the findings, you will be notified in 48 hours when at all possible. 3. A lab test or culture has been done, your results will be reviewed and you will be notified if you need a change in treatment. ADDITIONAL INSTRUCTIONS AND INFORMATION: 1. Your care today has been supervised by a physician who is specially trained in emergency care. Many problems require more than one evaluation for a complete diagnosis and treatment. We recommend that you schedule your follow up appointment as recommended to ensure complete treatment of you illness or injury. If you are unable to obtain follow up care and continue to have a problem, or if your condition worsens, we recommend that you return to the ED. 2. We are not able to safely determine your condition over the phone nor are we able to give sound medical advice over the phone. For these safety reasons, if you call for medical advice we will ask you to come to the ED for further evaluation. 3. If you have any questions regarding these discharge instructions please call the ED at [phone]. SAFETY INFORMATION: In the interest of safety, wellness, and injury prevention; we encourage you to wear your sealbelt, if you smoke; quite smoking, and we encourage family to use a protective helmet for bicycling and other sporting events that present an increased risk for head injury. IF YOUR SYMPTOMS WORSEN OR NEW SYMPTOMS DEVELOP, OR YOU HAVE CONCERNS ABOUT YOUR CONDITION; OR IF YOUR CONDITION WORSENS WHILE YOU ARE WAITING FOR YOUR FOLLOW UP APPOINTMENT; EITHER CONTACT YOUR PRIMARY CARE DOCTOR, THE PHYSICIAN WHOSE NAME AND NUMBER YOU WERE GIVEN, OR RETURN TO THE ED IMMEDIATELY. Scripts Cyclobenzaprine Hcl (CYCLOBENZAPRINE HCL) 10 Mg Tablet 1 TAB PO TID PRN for PAIN for 10 Days, #30 TAB 0 Refills Prov: ROSALEE WELDON APRN 11/06/20 ROSALEE WELDON APRN Nov 06, 2020 14:40 AMY PINEDA DO Nov 07, 2020 07:15
== END 2020-11-06 14:49 | disposition home or self-care (01) ==
LOC: ER 13:20
DX: M54.42 Lumbago with sciatica, left side (principal); J45.909 Unspecified asthma, uncomplicated; Z88.0 Allergy status to penicillin; Z88.2 Allergy status to sulfonamides; Z88.8 Allergy status to other drugs, medicaments and biological substances
CPT/HCPCS: 96372; 99283; J1885

== ENCOUNTER 2021-06-14 23:34 | Emergency (ER) | payer SELFPAY ==
[~2021-06-14] VITALS: Ht 160 cm; Wt 126.9 kg
[~2021-06-14 23:34] MED LIST changes: +CYCL10TA19 PO
[2021-06-15] MEDS ORDERED: IV RINGERS SOLUTION,LACTATED 1,000 ML IV ONE
[2021-06-15] MEDS ORDERED: ONDANSETRON ODT 4 MG TAB.RAPDIS PO ONE
[2021-06-15] MEDS ORDERED: PROMETHAZINE 25 MG TABLET. PO ONE
[2021-06-15] MEDS ORDERED: MIDAZOLAM HCL PF 5 MG/5 ML VIAL. IM ONE
--- NOTE | 2021-06-15 00:01 | PHYS DOC ---
Past History Past Medical History: Asthma Past Surgical History: Other Additional Past Surgical Histo: Cleft lip surgery x 2 as a child Smoking: Non-smoker Alcohol Use: Occasionally Drug Use: None Adult General Chief Complaint Chief Complaint: OVERDOSE HPI HPI Patient is a 25-year-old female who presents after eating either 30 mg or 300 mg of edible marijuana Gummies. States that it made her nauseous and vomit. States that it made her feel lightheaded and anxious as well. States she was trying to get high and was not trying to hurt himself. States she has taken these before but did not feel like this. Denies any recent travels, traumas, illnesses, fevers, chest pain with shortness of breath, abdominal pain, dysuria, hematuria, blood in the stool or diarrhea. Denies any numbness/weakne ss/tingling. Review of Systems Review of Systems Review of systems otherwise normal except noted in HPI Allergies Allergies Allergies Coded Allergies Type Severity Reaction Last Updated Verified Penicillins Allergy Intermediate [facility] 06/07/14 No loratadine Allergy Intermediate [facility] 06/07/14 No oseltamivir Allergy Intermediate 06/07/14 No sulfamethoxazole Allergy Intermediate [facility] 06/07/14 No trimethoprim Allergy Intermediate [facility] 06/07/14 No Physical Exam Physical Exam Constitutional: Well developed, well nourished, no acute distress, non-toxic appearance. [] HENT: Normocephalic, atraumatic, bilateral external ears normal, oropharynx moist, no oral exudates, nose normal. [] Eyes: PERRLA, EOMI, conjunctiva normal, no discharge. [] Neck: Normal range of motion, no tenderness, supple, no stridor. [] Cardiovascular: Sinus tachycardia Lungs & Thorax: Bilateral breath sounds clear to auscultation [] Abdomen: soft, no tenderness, no masses, no pulsatile masses. [] Skin: Warm, dry, no erythema, no rash. [] Extremities: No tenderness, ROM intact, no edema. [] Neurologic: Alert and oriented X 3, normal motor function, normal sensory function, able to sit, stand and walk without issue, no focal deficits noted. [] Psychologic: Affect normal, judgement abnormal, mood normal. [] No SI, no HI no hallucinations. Current Patient Data Vital Signs Vital Signs Date Time Temp Pulse Resp B/P (MAP) Pulse Ox O2 Delivery O2 Flow Rate FiO2 06/14/21 23:34 100.3 139 20 98 EKG EKG [] Radiology/Procedures Radiology/Procedures [] Heart Score C/O Chest Pain: No Risk Factors: Risk Factors: DM, Current or recent (<one month) smoker, HTN, HLP, family history of CAD, obesity. Risk Scores: Risk Factors: DM, Current or recent (<one month) smoker, HTN, HLP, family history of CAD, obesity. Course & Med Decision Making Course & Med Decision Making Patient is a 25-year-old female that presents after eating edible Gummies at either 30 mg or 300 mg, and complaining of lightheadedness and nausea with vomiting Vital signs notable for sinus tachycardia. Physical exam noted above. IVs placed and fluid given. Given antiemetics and anxiolytics. After some IV fluid and medications and on reassessment patient feeling much better and able to take p.o. States she is feeling much better and would like to be discharged home. Discussed the use of substances without a prescription from a physician and the risk of this. Advised to cease on the edible marijuana use. Advised to follow-up in the morning with primary care physician. Gave strict return precautions to the ED. Patient grateful, verbalized understanding and agreed with plan of discharge. Dragon Disclaimer Dragon Disclaimer This electronic medical record was generated, in whole or in part, using a voice recognition dictation system. Departure Departure: Impression: Primary Impression: Marijuana abuse Disposition: HOME / SELF CARE / HOMELESS Condition: GOOD Referrals: ALTAF ANDREA APRN (PCP) Patient Instructions: Marijuana Abuse-Brief Additional Instructions: Thank you for coming into the emergency department tonight and allowing us to take care of you. Please read the attached information carefully to go over things we discussed. Please cease using edible marijuana or any other substan woody not prescribed by your primary care physician. Please follow-up with your primary care physician to update on your ED visit and set up a follow-up. Please come back with new or concerning symptoms as discussed. SHEREE MARTINEZ MD Jun 15, 2021 00:01
[2021-06-15 02:47] VITALS: BP 126/68
== END 2021-06-15 02:56 | disposition home or self-care (01) ==
LOC: ER 23:34
DX: F12.10 Cannabis abuse, uncomplicated (principal); J45.909 Unspecified asthma, uncomplicated; Z88.0 Allergy status to penicillin; Z88.2 Allergy status to sulfonamides; Z88.1 Allergy status to other antibiotic agents; Z88.8 Allergy status to other drugs, medicaments and biological substances
CPT/HCPCS: 96360; 96372; 99283; J2250; J7120; Q0162; Q0169

== ENCOUNTER 2021-07-15 18:36 | Emergency (ER) | payer SELFPAY ==
[~2021-07-15] VITALS: Ht 160 cm; Wt 127.0 kg
--- NOTE | 2021-07-15 18:51 | PHYS DOC ---
Past History Past Medical History: Asthma (JUSTINA GABRIEL APRN) Past Surgical History: Other Additional Past Surgical Histo: Cleft lip surgery x 2 as a child (JUSTINA GABRIEL APRN) Smoking: Non-smoker Additional Smoking Information: vaps Alcohol Use: None Drug Use: None (JUSTINA GABRIEL APRN) General Adult EDM: Chief Complaint: ABDOMINAL PAIN HPI: HPI: Patient is a 25-year-old female that presents today via [facility] with upper abdominal pain. Patient states that she woke up around 1 PM today with left upper quadrant abdominal pain, she states that she thought she needed to eat so she had a [employer] sandwich, she said now the pain has migrated from her left upper quadrant to her right upper quadrant. Patient has not had any nausea or vomiting or diarrhea with the pain patient believes that she had a bowel movement today but cannot remember. Patient states that she has not had any alcohol within the last 24 hours she does vape she says and she denies any il licit drug use. Patient states that she takes medication on a regular basis to regulate her menstrual cycles she has not been taking them regularly, she states that she might have had a menstrual cycle last month but she said it was very short in duration. (JUSTINA GABRIEL APRN) Review of Systems: Review of Systems: Constitutional: Denies fever or chills Eyes: Denies change in visual acuity HENT: Denies nasal congestion or sore throat Respiratory: Denies cough or shortness of breath Cardiovascular: Denies chest pain or edema GI: Abdominal pain denies nausea, vomiting, bloody stools or diarrhea : Denies dysuria Musculoskeletal: Denies back pain or joint pain Integument: Denies rash Neurologic: Denies headache, focal weakness or sensory changes Endocrine: Denies polyuria or polydipsia Lymphatic: Denies swollen glands Psychiatric: Denies depression or anxiety (JUSTINA GABRIEL APRN) Allergies: Allergies: Allergies Coded Allergies Type Severity Reaction Last Updated Verified Penicillins Allergy Intermediate HIVES 06/07/14 No loratadine Allergy Intermediate HIVES 06/07/14 No oseltamivir Allergy Intermediate 06/07/14 No sulfamethoxazole Allergy Intermediate HIVES 06/07/14 No trimethoprim Allergy Intermediate HIVES 06/07/14 No (JUSTINA GABRIEL APRN) Physical Exam: PE: Constitutional: Well developed, well nourished, no acute distress, non-toxic appearance. [] HENT: Normocephalic, atraumatic, bilateral external ears normal, oropharynx moist, no oral exudates, nose normal. [] Eyes: PERRLA, EOMI, conjunctiva normal, no discharge. [] Neck: Normal range of motion, no tenderness, supple, no stridor. [] Cardiovascular:Heart rate regular rhythm, no murmur [] Lungs & Thorax: Bilateral breath sounds clear to auscultation [] Abdomen: Bowel sounds normal, soft, no tenderness, no masses, no pulsatile masses. [] Skin: Warm, dry, no erythema, no rash. [] Back: No tenderness, no CVA tenderness. [] Extremities: No tenderness, no cyanosis, no clubbing, ROM intact, no edema. [] Neurologic: Alert and oriented X 3, normal motor function, normal sensory function, no focal deficits noted. [] Psychologic: Affect normal, judgement normal, mood normal. [] (JUSTINA GABRIEL DEBONING TEAM LEADER) Current Patient Data: Vital Signs: Vital Signs Date Time Temp Pulse Resp B/P (MAP) Pulse Ox O2 Delivery O2 Flow Rate FiO2 07/15/21 20:00 83 18 118/72 (87) 98 Room Air 07/15/21 18:42 98.3 95 18 124/51 (75) 95 (JUSTINA GABRIEL APRN) EKG: EKG: [] (JUSTINA GABRIEL APRN) Radiology/Procedures: Radiology/Procedures: REASON: abdominal pain, may have injured moving PROCEDURE: KUB Exam: Abdomen one view INDICATION: Abdominal TECHNIQUE: Supine view the abdomen Comparisons: None FINDINGS: Air and stool noted throughout the colon to level the rectum in a nonobstructive bowel gas pattern. No suspicious masses or calcific patient. There is osseous structures are unremarkable IMPRESSION: Nonobstructive bowel gas pattern. Electronically signed by: Suresh Hernandez MD (07/15/2021 7:45 PM) KELSY[] (JUSTINA GABRIEL DEBONING TEAM LEADER) Heart Score: C/O Chest Pain: N/A Risk Factors: Risk Factors: DM, Current or recent (<one month) smoker, HTN, HLP, family history of CAD, obesity. Risk Scores: Score 0 - 3: 2.5% MACE over next 6 weeks - Discharge Home Score 4 - 6: 20.3% MACE over next 6 weeks - Admit for Clinical Observation Score 7 - 10: 72.7% MACE over next 6 weeks - Early Invasive Strategies (JUSTINA GABRIEL APRN) Course & Med Decision Making: Course & Med Decision Making Pertinent Labs and Imaging studies reviewed. (See chart for details) 1950 reassessment of patient shows that her stomach pain is improved but she is now having some pain along the lower right rib cage area where she has a bump that is tender to touch. No redness no erythema noted at that time oxygenation level is 96% with a heart rate of 94%. Patient will be discharged home to follow-up with her primary care physician she is also been instructed to use izol-nwa-mnuykbp Lidoderm patches to that area to help with localized pain relief, also to use oral Tylenol and/or ibuprofen as needed for pain also using the Voltaren gel xwuu-nuz-wiuxfsf to help with localized pain relief as well. Patient and family member at the bedside verbalized understanding of this and are agreeable to the plan of care (JUSTINA GABRIEL APRN) Course & Med Decision Making Did not see or evaluate patient. Did not discuss patient with HAIR DESIGNER. Generally agree with HAIR DESIGNER's work-up and disposition per note. (SHEREE MARTINEZ MD) Dragon Disclaimer: Dragon Disclaimer: This electronic medical record was generated, in whole or in part, using a voice recognition dictation system. (JUSTINA GABRIEL APRN) Departure Departure: Impression: Primary Impression: Right-sided chest wall pain Additional Impression: GERD (gastroesophageal reflux disease) Qualified Codes: K21.9 - Gastro-esophageal reflux disease without esophagitis Disposition: HOME / SELF CARE / HOMELESS Condition: STABLE Referrals: PCP,UNKNOWN (PCP) Patient Instructions: Chest Wall Pain, Gastroesophageal Reflux Disease, Adult Additional Instructions: Gubb-bbb-przwjzs Tylenol and/or ibuprofen as needed for pain Opoc-els-pywhiwm Lidoderm patches 12 hours on 12 hours off Snpj-sgd-tjxalen Voltaren cream to the right chest wall area as labeled directed for localized pain relief Follow-up with your primary care physician or one of the clinics located on the brochure that has been given for you for clinic resources for further management of your abdominal pain and your right chest wall pain. Sypj-swf-iwieqaj Pepcid 20 mg twice daily for 14 days. JUSTINA GABRIEL APRN Jul 15, 2021 18:51 SHEREE MARTINEZ MD Jul 16, 2021 00:12
[2021-07-15] MEDS ORDERED: LIDO:MAALOX 1:1 20 ML SINGLE DOSE. PO ONE (19:00)
[2021-07-15 19:42] LABS: BACTERIA,URINE 0 /HPF (0-FEW); CLARITY,URINE CLEAR; COLOR,URINE YELLOW; GLUCOSE,URINE NEG (NEG); NITRITE,URINE NEG (NEG); RBC,URINE 0 /HPF (0-2); SQUAMOUS EPITHELIAL CELL,UR FEW /LPF; UROBILINOGEN,URINE 0.2 mg/dL (0.2 mg/dL); WBC,URINE 0 /HPF (0-4)
--- NOTE | 2021-07-15 19:47 | RAD ---
Exam: Abdomen one view INDICATION: Abdominal TECHNIQUE: Supine view the abdomen Comparisons: None FINDINGS: Air and stool noted throughout the colon to level the rectum in a nonobstructive bowel gas pattern. No suspicious masses or calcific patient. There is osseous structures are unremarkable IMPRESSION: Nonobstructive bowel gas pattern. Electronically signed by: Suresh Hernandez MD (07/15/2021 7:45 PM) KELSY
[2021-07-15 20:00] VITALS: BP 118/72
== END 2021-07-15 20:00 | disposition home or self-care (01) ==
LOC: ER 18:36
DX: K21.9 Gastro-esophageal reflux disease without esophagitis (principal); R07.89 Other chest pain; J45.909 Unspecified asthma, uncomplicated; F17.200 Nicotine dependence, unspecified, uncomplicated; Z88.0 Allergy status to penicillin; Z88.1 Allergy status to other antibiotic agents; Z88.2 Allergy status to sulfonamides; Z88.8 Allergy status to other drugs, medicaments and biological substances
CPT/HCPCS: 74018; 81001; 81025; 99284